=== PATIENT | female | born 2000 | race Caucasian/White ===

== ENCOUNTER 2022-04-26 15:59 | Emergency (ER) | payer MEDICAID ==
[~2022-04-26] VITALS: Ht 157.5 cm; Wt 61.2 kg
[2022-04-26 16:07] VITALS: BP 137/78
--- NOTE | 2022-04-26 16:13 | NUR ---
WALKED IN C/O VAGINAL SPOTTING AT 15 WK AND WAS REFERRED BY OBGYN FOR ER US. STATES FIRST . DENIES ANY HX, STATES MILD PELVIC PAIN. VITALS STABLE.
[2022-04-26 16:14] VITALS: BP 137/78
--- NOTE | 2022-04-26 17:00 | NUR ---
US AT BEDSIDE
[2022-04-26 17:03] LABS: BASOPHILS % (AUTO) 0.2 % (0.0-2.0); EOSINOPHILS % (AUTO) 0.4 % (0.0-4.0); HEMATOCRIT 37.3 % (36-48); LYMPHOCYTES # (AUTO) 2.6 K/uL (2.5-16.5); LYMPHOCYTES % (AUTO) 24.2 % (20.5-51.1); MEAN CORPUSCULAR HEMOGLOBIN 31 pg (27-31); MEAN CORPUSCULAR HGB CONC 35 g/dL (33-37); MEAN CORPUSCULAR VOLUME 88.9 fL (80-94); MONOCYTES # (AUTO) 0.4 K/uL (0.8-1.0); MONOCYTES % (AUTO) 4.2 % (1.7-9.3); NEUTROPHILS # (AUTO) 7.5 K/uL (1.8-7.7); PLATELET COUNT (AUTO) 263 K/uL (140-450); RED CELL DISTRIBUTION WIDTH 13.2 % (11.6-13.7); WHITE BLOOD COUNT (AUTO) 10.6 K/uL (4.5-11.0)
--- NOTE | 2022-04-26 18:08 | NUR ---
Patient discharged with v/s stable. Written and verbal after care instructions given and explained. Patient verbalized understanding. Ambulatory with steady gait. All questions addressed prior to discharge. Advised to follow up with PMD.
== END 2022-04-26 18:08 | disposition home or self-care (01) ==
LOC: MED 15:59
DX: O02.1 Missed abortion (principal); Z3A.15 15 weeks gestation of pregnancy
CPT/HCPCS: 36415; 76805; 81025; 84702; 85025; 86900; 86901; 99284; Q0092